=== PATIENT | female | born 1950 | race Caucasian/White ===

== ENCOUNTER 2018-12-13 00:18 | Emergency (ER) | payer OTHER ==
[~2018-12-13] VITALS: Ht 160 cm; Wt 74.8 kg
--- NOTE | 2018-12-13 00:18 | NUR ---
ARRIVAL: [facility] BROUGHT 68 YEAR OLD FEMALE INTO THE ER WITH COMPLAINT OF SHORTNESS OF BREATH. NEBULIZER TREATMENT AND EPI GIVEN PRIOR TO ARRIVAL.STABLE ON ARRIVAL TO ER.
--- NOTE | 2018-12-13 00:25 | NUR ---
UPDATE: DR WHITEHEAD TRIED TO GET PATIENT TO STAY IN HOSPITAL DUE TO SEVERITY OF HER ALLERGIC REACTION. PATIENT ADAMANT ABOUT GOING HOME. " I AM NOT STAYING BECAUSE I JUST GOT OUT OF A 30 [address] HOSPITAL STAY." DR WHITEHEAD STRESSED TO HER THAT HER CONDITION COULD WORSEN. PATIENT WANTS TO SIGN OUT AMA.
[2018-12-13 00:28] VITALS: BP 90/69
[2018-12-13] MEDS ORDERED: SOLU-MEDROL IV STA (00:37)
--- NOTE | 2018-12-13 00:40 | ER.PDOC ---
General Chief Complaint: Allergic Reaction Stated Complaint: ALLERGIC REATION Time seen by MD: 00:25 Source: patient Exam Limitations: no limitations History of Present Illness Initial Comments patient started a medication from her cancer doctor and then noted tongue swelling with some lisa, ems notified and gave epi and Benadryl, patient now improving, no tayna inhibitor and no hx of angioedema previously no hx of c1 esterase inhibitor, no chest pain, no lisa now, the tongue swelling has improved after treatment by ems but she states it is still there. Associated Symptoms: tongue swollen Identified Cause: possibly Exposure: other Vital Signs First Vital Signs Date Time Temp Pulse Resp B/P (MAP) Pulse Ox O2 Delivery O2 Flow Rate FiO2 12/13/18 00:21 98.1 120 22 93 Room Air 12/13/18 00:28 90/69 (76) Last Vital Signs Date Time Temp Pulse Resp B/P (MAP) Pulse Ox O2 Delivery O2 Flow Rate FiO2 12/13/18 00:28 98.1 120 22 90/69 (76) 93 Room Air Past Medical History Medical History: cancer Surgical History: , knee LMP (females 10-50): postmenopause Social History Smoking: greater than 1 pack/day Alcohol Use: none Drug Use: none Constitutional: denies chills EENTM: mouth swelling Respiratory: denies cough Cardiovascular: denies chest pain, denies palpitations Gastrointestinal: denies abdominal pain Genitourinary: denies flank pain Musculoskeletal: denies back pain, denies joint pain, denies neck pain Skin: denies rash Psychiatric/Neurological: denies headache Endocrine: denies flushing Hematologic/Lymphatic: denies blood clots Physical Exam General Appearance: alert, no distress HEENT: angioedema Skin: no rash Extremities: non-tender, nml ROM Neck: other Respiratory: no resp. distress, breath sounds nml CVS: reg. rate & rhythm, heart sounds nml Abdomen: non-tender NEURO/PSYCH: oriented x 3, CN's nml as tested, motor nml, sensation nml, mood/affect nml Comments patient has angioedema of the tongue and floor of mouth, she is handling secretions and can talk with altered voice secondary to tongue swelling. Results/Orders Results/Orders Orders - CHARLEYBINA DUDLEY MD Tranexamic Acid (Tranexamic Acid) (12/13/18 01:00) Methylprednisolone Sod Succ (Solu-Medrol (12/13/18 00:37) 0.9 % Sodium Chloride (Ns 100ml) (12/13/18 00:41) Methylprednisolone Sod Succ (Solu-Medrol (12/13/18 00:41) Tranexamic Acid (Tranexamic Acid) (12/13/18 00:42) Vital Signs Date Time Temp Pulse Resp B/P (MAP) Pulse Ox O2 Delivery O2 Flow Rate FiO2 12/13/18 00:28 98.1 120 22 90/69 (76) 93 Room Air 12/13/18 00:28 98.1 120 22 12/13/18 00:21 98.1 120 22 93 Room Air Administered Medications Medications (Trade) Dose Ordered Sig/Zeinab Route PRN Reason Start Time Stop Time Status Last Admin Dose Admin Methylprednisolone Sodium Succinate (Solu-Medrol) 125 mg STAT STAT IV 12/13/18 00:37 12/13/18 00:38 UNV 12/13/18 00:58 125 MG Tranexamic Acid 1000 mg/Sodium Chloride 110 ml @ 200 mls/hr OT IV 12/13/18 01:00 01/12/19 00:59 UNV 12/13/18 00:58 200 MLS/HR Course Sepsis Screening Results: Posi: POSITIVE SEPSIS RISK Vitals & review Data Vital Sign - Last 24 Hours 12/13/18 12/13/18 12/13/18 00:21 00:28 00:28 Temp 98.1 98.1 98.1 Pulse 120 120 120 Resp 22 22 22 B/P (MAP) 90/69 (76) Pulse Ox 93 93 O2 Delivery Room Air Room Air Current Medications Medications (Trade) Dose Ordered Sig/Zeinab PRN Reason Start Time Stop Time Status Last Admin Methylprednisolone Sodium Succinate (Solu-Medrol) 125 mg STAT STAT 12/13/18 00:37 12/13/18 00:38 UNV 12/13/18 00:58 Tranexamic Acid 1000 mg/Sodium Chloride 110 ml @ 200 mls/hr OT 12/13/18 01:00 01/12/19 00:59 UNV 12/13/18 00:58 Sepsis Infection Criteria Pres: None O2 Sat by Pulse Oximetry: 93 Findings recommended to patient she be admitted to hospital for monitoring and airway management as her airway could close off and she could , patient is alert and lucent and states she was in hospital 30 days previously and will not stay in hospital, she is ok with monitoring in the er for a short period of time, she states she is 6/10 in severity at this time and was 10/10 when ems was notified. patient is able to make medical decisions and understands she could if she goes home. will dc against medical advice, instructed patient her blood pressure was low and I recommended lab tests, ekg, to rule out infection or multiple other conditions that could cause the blood pressure to be low, patient understands and refused testing in er today, she understands low blood pressure could be from multiple life threatening medical conditions that will not be discovered without testing in er today. she refused testing in er, she states she just wants to get her medication and go home. Departure Time of Disposition: 01:33 Disposition: 07 AGAINST MEDICAL ADVICE Impression: Primary Impression: Angioedema Additional Impression: Hypotension Condition: Against Medical Advice Patient Instructions: Anaphylactic Reaction, Angioedema, Hypotension Referrals: JUAN A JACOBS DO Additional Instructions: you are being discharged against medical advice and angioedema can restrict your airway to the point where you cannot breath causing , you should be admitted to the hospital for this, your blood pressure is also low and I recommend evaluation with testing in the emergency department for this as there are multiple life threatening conditions that could cause your blood pressure to be low, you should have testing in emergency department to help rule out these medical conditions, you are being discharged against medical advice for this also as you refused testing in the er today. do not take the medication that may have caused your tongue swelling and see your doctor for possible alternate prescription Duration or Time Spent with Pa: 20 Problem Qualifiers BINA WHITEHEAD MD Dec 13, 2018 00:40
[2018-12-13] MEDS ORDERED: SOLU-MEDROL ONE (00:41)
[2018-12-13] MEDS ORDERED: NS 100ML 100 ML IV ONE (00:41)
[2018-12-13] MEDS ORDERED: TRANEXAMIC ACID IV ONE (00:42)
[2018-12-13] MEDS ORDERED: TRANEXAMIC ACID 1,000 MG in NS 100ML 100 ML IV SCH (01:00)
== END 2018-12-13 01:34 | disposition left against medical advice (07) ==
LOC: ER 00:18 → EDBD 00:18 → ER 01:34
DX: T78.3XXA Angioneurotic edema, initial encounter (principal); I95.9 Hypotension, unspecified; F17.210 Nicotine dependence, cigarettes, uncomplicated; X58.XXXA Exposure to other specified factors, initial encounter
CPT/HCPCS: 96365; 96375; 99284; J2930; J7050